=== PATIENT | female | born 1950 | race Hispanic/Latino ===

== ENCOUNTER 2019-12-28 05:23 | Observation (INO) | payer MEDICARE, OTHER ==
[2019-12-23 10:24] LABS: BASOPHILS # (AUTO) 0.1 (0.0-0.1); EOSINOPHILS # (AUTO) 0.4 (0.0-0.4); EOSINOPHILS % 4.7 % (0.0-6.0); HEMATOCRIT 34.1 % (34.2-44.1); HEMOGLOBIN 10.9 g/dL (12.0-16.0); LYMPHOCYTES # (AUTO) 2.5 (1.0-3.2); LYMPHOCYTES % 29.2 % (18.0-39.1); MEAN CORPUSCULAR HEMOGLOBIN 28.3 pg (28-32); MEAN CORPUSCULAR VOLUME 88.6 fL (81-99); MONOCYTES # (AUTO) 0.7 (0.2-0.8); MONOCYTES % 7.6 % (4.4-11.3); NEUTROPHILS # (AUTO) 4.9 (2.1-6.9); NEUTROPHILS % 57.2 % (38.7-80.0); PLATELET COUNT 332 x10e3/uL (140-360); RED BLOOD COUNT 3.85 x10e6/uL (3.6-5.1); RED CELL DISTRIBUTION WIDTH 15.2 % (11.7-14.4)
[2019-12-23 11:14] LABS: ANION GAP 16.7 mmol/L (8-16); BLOOD UREA NITROGEN 16 mg/dL (7-26); BUN/CREATININE RATIO 24 (6-25); CARBON DIOXIDE 22 mmol/L (22-29); CHLORIDE 100 mmol/L (98-107); CREATININE, SERUM 0.68 mg/dL (0.57-1.11); EST GLOMERULAR FILTRATION RATE > 60 ML/MIN (60-); GLUCOSE 121 mg/dL (74-118); POTASSIUM 3.7 mmol/L (3.5-5.1); SODIUM 135 mmol/L (136-145)
[~2019-12-28] VITALS: Ht 157.5 cm; Wt 67.6 kg
[~2019-12-28 05:23] MED LIST: ASPIRIN81 MG PO; GLIPIZIDE ER5 MG PO; HYDROCHLOROTHIA25 MG PO; LEVOTHYROXINE75 MCG PO; LOSARTAN POTAS100 MG PO; LOVASTATIN40 MG PO; MECLIZINE HCL12.5 MG PO; METFORMIN HCL500 MG PO; VIT D3 PO
[2019-12-28] MEDS ORDERED: PIPER-TAZ 3.375 GM 50 ML ONE (06:14)
[2019-12-28] MEDS ORDERED: CLINDAMYCIN 300MG 50 ML IV ONE (06:14)
[2019-12-28] MEDS ORDERED: IOPAMIDOL 300MG/ML 50ML INFUS..BTL IV ONE ×2 (07:06→08:55)
[2019-12-28] MEDS ORDERED: INDIGOTINDISULFONATE SODIUM 8 MG/ML AMP IJ ONE ×2 (07:07→08:55)
[2019-12-28] MEDS ORDERED: BUPIVACAINE 0.25%/EPI 30ML SDV INJ ONE (07:07)
[2019-12-28] MEDS ORDERED: SILVER SULFADIAZINE 50GM CREAM ONE (07:28)
[2019-12-28] MEDS ORDERED: VANCOMYCIN HCL 500 MG ONE (07:45)
[2019-12-28] MEDS ORDERED: GENTAMICIN SULFATE 40 MG/ML 2 ML VIAL ONE (08:24)
[2019-12-28] MEDS ORDERED: B&O 60MG R/S 60 MG SUPP PR ONE (08:55)
[2019-12-28] MEDS ORDERED: DIPHENHYDRAMINE HCL 25 MG CAP PO PRN (10:45)
[2019-12-28] MEDS ORDERED: MORPHINE SULFATE 2 MG/ML SYR 1ML IV PRN (10:45)
[2019-12-28] MEDS: D5.45%NS/KCL 20MEQ 1,000 ML IV SCH ×3 (10:45→12:50)
[2019-12-28] MEDS ORDERED: ONDANSETRON HCL INJ 2MG/ML 2ML 2 MG/ML VIAL IV PRN (10:45)
[2019-12-28 11:30] VITALS: BP 113/60
[2019-12-28 12:14] LABS: BASOPHILS # (AUTO) 0.1 (0.0-0.1); BASOPHILS % 0.5 % (0.0-1.0); EOSINOPHILS # (AUTO) 0.1 (0.0-0.4); EOSINOPHILS % 0.5 % (0.0-6.0); HEMATOCRIT 36.3 % (34.2-44.1); HEMOGLOBIN 11.5 g/dL (12.0-16.0); LYMPHOCYTES # (AUTO) 0.9 (1.0-3.2); LYMPHOCYTES % 9.5 % (18.0-39.1); MEAN CORPUSCULAR HEMOGLOBIN 28.3 pg (28-32); MEAN CORPUSCULAR HGB CONC 31.7 g/dL (31-35); MEAN CORPUSCULAR VOLUME 89.4 fL (81-99); MONOCYTES # (AUTO) 0.1 (0.2-0.8); MONOCYTES % 1.5 % (4.4-11.3); NEUTROPHILS # (AUTO) 8.1 (2.1-6.9); NEUTROPHILS % 87.6 % (38.7-80.0); PLATELET COUNT 340 x10e3/uL (140-360); RED BLOOD COUNT 4.06 x10e6/uL (3.6-5.1); RED CELL DISTRIBUTION WIDTH 15.3 % (11.7-14.4)
[2019-12-28 12:30] LABS: ANION GAP 17.8 mmol/L (8-16); BLOOD UREA NITROGEN 12 mg/dL (7-26); BUN/CREATININE RATIO 17 (6-25); CALCIUM 9.3 mg/dL (8.4-10.2); CARBON DIOXIDE 24 mmol/L (22-29); CHLORIDE 104 mmol/L (98-107); EST GLOMERULAR FILTRATION RATE > 60 ML/MIN (60-); GLUCOSE 178 mg/dL (74-118); POTASSIUM 3.8 mmol/L (3.5-5.1); SODIUM 142 mmol/L (136-145)
[2019-12-28] MEDS: CLINDAMYCIN 300MG 50 ML IV SCH ×2 (15:59→21:09)
[2019-12-28] MEDS: DOCUSATE SODIUM 100 MG CAP PO SCH (16:00)
[2019-12-28 16:02] VITALS: BP 119/64
[2019-12-28] MEDS: PIPER-TAZ 3.375 GM 50 ML IV SCH (17:42)
[2019-12-28 19:20] LABS: CHOL/HDL RATIO 2.6 (3.0-3.6)
[2019-12-28 20:00] VITALS: BP 114/63
[2019-12-28] MEDS: SIMVASTATIN 40 MG TAB PO SCH (20:03)
[2019-12-28] MEDS ORDERED: KETOROLAC TROMETHAMINE 30 MG/ML VIAL ONE (21:27)
[2019-12-28] MEDS ORDERED: ONDANSETRON HCL INJ 2MG/ML 2ML 2 MG/ML VIAL ONE (21:27)
[2019-12-28] MEDS ORDERED: DEXAMETHASONE SOD PHOS INJ 4 MG/ML VIAL ONE (21:27)
[2019-12-28] MEDS ORDERED: LIDOCAINE HCL 2% LOCAL INJ 5 ML SDV VIAL INJ ONE (21:27)
[2019-12-28] MEDS ORDERED: PROPOFOL IV EMULSION 10 MG/ML 20 ML VIAL ONE (21:27)
[2019-12-28] MEDS ORDERED: SEVOFLURANE INHAL SOLN 250 ML PEN BTL ONE (21:27)
[2019-12-28] MEDS ORDERED: MIDAZOLAM HCL 2 MG/2 ML VIAL ONE (21:44)
[2019-12-28] MEDS ORDERED: FENTANYL CITRATE/PF 100MCG/2 ML INJ ONE (21:44)
[2019-12-29] VITALS (7 sets, daily range): BP systolic 101–124; BP diastolic 61–74
[2019-12-29] MEDS: D5.45%NS/KCL 20MEQ 1,000 ML IV SCH ×2 (01:19→18:33)
[2019-12-29] MEDS: CLINDAMYCIN 300MG 50 ML IV SCH ×3 (05:04→21:21)
[2019-12-29] MEDS: LEVOTHYROXINE SODIUM 75 MCG TAB PO SCH (05:04)
[2019-12-29] MEDS: ACETAMINOPHEN 325 MG TAB PO PRN (05:07)
[2019-12-29 05:20] LABS: BASOPHILS % 0.3 % (0.0-1.0); EOSINOPHILS % 0.4 % (0.0-6.0); HEMATOCRIT 28.7 % (34.2-44.1); HEMOGLOBIN 9.3 g/dL (12.0-16.0); LYMPHOCYTES # (AUTO) 2.1 (1.0-3.2); LYMPHOCYTES % 20.2 % (18.0-39.1); MEAN CORPUSCULAR HEMOGLOBIN 28.4 pg (28-32); MEAN CORPUSCULAR HGB CONC 32.4 g/dL (31-35); MEAN CORPUSCULAR VOLUME 87.8 fL (81-99); MONOCYTES # (AUTO) 1.1 (0.2-0.8); MONOCYTES % 10.4 % (4.4-11.3); NEUTROPHILS # (AUTO) 7.2 (2.1-6.9); NEUTROPHILS % 68.4 % (38.7-80.0); PLATELET COUNT 301 x10e3/uL (140-360); RED BLOOD COUNT 3.27 x10e6/uL (3.6-5.1); RED CELL DISTRIBUTION WIDTH 15.1 % (11.7-14.4)
[2019-12-29 05:57] LABS: ANION GAP 16.2 mmol/L (8-16); BLOOD UREA NITROGEN 11 mg/dL (7-26); BUN/CREATININE RATIO 16 (6-25); CALCIUM 8.3 mg/dL (8.4-10.2); CARBON DIOXIDE 22 mmol/L (22-29); CHLORIDE 102 mmol/L (98-107); EST GLOMERULAR FILTRATION RATE > 60 ML/MIN (60-); GLUCOSE 109 mg/dL (74-118); POTASSIUM 4.2 mmol/L (3.5-5.1); SODIUM 136 mmol/L (136-145)
[2019-12-29] MEDS: DOCUSATE SODIUM 100 MG CAP PO SCH ×2 (08:48→16:44)
[2019-12-29] MEDS: PIPER-TAZ 3.375 GM 50 ML IV SCH ×4 (08:48→23:34)
[2019-12-29] MEDS: LOSARTAN POTASSIUM 100 MG TAB PO SCH (08:48)
[2019-12-29] MEDS: SENNOSIDES 8.6 MG TAB PO SCH (08:56)
[2019-12-29] MEDS: ACETAMINOPHEN/CODEINE 300MG - 30MG TAB PO PRN ×3 (11:18→20:12)
[2019-12-29] MEDS: SIMVASTATIN 40 MG TAB PO SCH (20:12)
[2019-12-30] VITALS (8 sets, daily range): BP systolic 107–123; BP diastolic 62–80
[2019-12-30] MEDS: ACETAMINOPHEN/CODEINE 300MG - 30MG TAB PO PRN ×2 (04:33→16:05)
[2019-12-30] MEDS: CLINDAMYCIN 300MG 50 ML IV SCH ×3 (05:17→22:38)
[2019-12-30] MEDS: LEVOTHYROXINE SODIUM 75 MCG TAB PO SCH (05:18)
[2019-12-30 06:12] LABS: BASOPHILS # (AUTO) 0.1 (0.0-0.1); BASOPHILS % 0.6 % (0.0-1.0); EOSINOPHILS # (AUTO) 0.2 (0.0-0.4); EOSINOPHILS % 2.6 % (0.0-6.0); HEMATOCRIT 31.3 % (34.2-44.1); HEMOGLOBIN 10.3 g/dL (12.0-16.0); LYMPHOCYTES # (AUTO) 2.4 (1.0-3.2); LYMPHOCYTES % 30.2 % (18.0-39.1); MEAN CORPUSCULAR HEMOGLOBIN 29.9 pg (28-32); MEAN CORPUSCULAR HGB CONC 32.9 g/dL (31-35); MONOCYTES # (AUTO) 0.7 (0.2-0.8); MONOCYTES % 8.7 % (4.4-11.3); NEUTROPHILS # (AUTO) 4.7 (2.1-6.9); NEUTROPHILS % 57.7 % (38.7-80.0); PLATELET COUNT 319 x10e3/uL (140-360); RED BLOOD COUNT 3.44 x10e6/uL (3.6-5.1); RED CELL DISTRIBUTION WIDTH 15.6 % (11.7-14.4)
[2019-12-30 06:32] LABS: ANION GAP 16.2 mmol/L (8-16); BLOOD UREA NITROGEN 7 mg/dL (7-26); BUN/CREATININE RATIO 10 (6-25); CALCIUM 8.6 mg/dL (8.4-10.2); CARBON DIOXIDE 24 mmol/L (22-29); CHLORIDE 104 mmol/L (98-107); CREATININE, SERUM 0.69 mg/dL (0.57-1.11); EST GLOMERULAR FILTRATION RATE > 60 ML/MIN (60-); GLUCOSE 109 mg/dL (74-118); POTASSIUM 4.2 mmol/L (3.5-5.1); SODIUM 140 mmol/L (136-145)
[2019-12-30] MEDS: PIPER-TAZ 3.375 GM 50 ML IV SCH ×2 (09:00→15:58)
[2019-12-30] MEDS: SENNOSIDES 8.6 MG TAB PO SCH ×2 (09:23→20:35)
[2019-12-30] MEDS: DOCUSATE SODIUM 100 MG CAP PO SCH ×2 (09:23→16:04)
[2019-12-30] MEDS: LOSARTAN POTASSIUM 100 MG TAB PO SCH (09:23)
[2019-12-30] MEDS: D5.45%NS/KCL 20MEQ 1,000 ML IV SCH (12:04)
[2019-12-30] MEDS: SIMVASTATIN 40 MG TAB PO SCH (20:35)
[2019-12-31] VITALS: BP 113/69
[2019-12-31 04:00] VITALS: BP 123/86
[2019-12-31] MEDS: D5.45%NS/KCL 20MEQ 1,000 ML IV SCH (04:55)
[2019-12-31] MEDS: LEVOTHYROXINE SODIUM 75 MCG TAB PO SCH (05:47)
[2019-12-31 06:05] LABS: BASOPHILS # (AUTO) 0.1 (0.0-0.1); BASOPHILS % 0.8 % (0.0-1.0); EOSINOPHILS # (AUTO) 0.4 (0.0-0.4); EOSINOPHILS % 5.3 % (0.0-6.0); HEMOGLOBIN 10.5 g/dL (12.0-16.0); LYMPHOCYTES % 25.6 % (18.0-39.1); MEAN CORPUSCULAR HGB CONC 32.8 g/dL (31-35); MEAN CORPUSCULAR VOLUME 91.4 fL (81-99); MONOCYTES # (AUTO) 0.7 (0.2-0.8); MONOCYTES % 9.6 % (4.4-11.3); NEUTROPHILS # (AUTO) 4.5 (2.1-6.9); NEUTROPHILS % 58.3 % (38.7-80.0); PLATELET COUNT 295 x10e3/uL (140-360); RED CELL DISTRIBUTION WIDTH 15.4 % (11.7-14.4)
[2019-12-31] MEDS ORDERED: SENOKOT8.6 MG PO (06:07)
[2019-12-31] MEDS ORDERED: ZOFRAN4 MG PO (06:07)
[2019-12-31] MEDS ORDERED: COLACE100 MG PO (06:07)
[2019-12-31] MEDS ORDERED: TYLENOL325 M2 PO (06:07)
[2019-12-31] MEDS: CLINDAMYCIN 300MG 50 ML IV SCH ×2 (06:07→15:10)
[2019-12-31 06:27] LABS: BLOOD UREA NITROGEN 7 mg/dL (7-26); BUN/CREATININE RATIO 10 (6-25); CALCIUM 8.5 mg/dL (8.4-10.2); CARBON DIOXIDE 21 mmol/L (22-29); CHLORIDE 102 mmol/L (98-107); CREATININE, SERUM 0.67 mg/dL (0.57-1.11); EST GLOMERULAR FILTRATION RATE > 60 ML/MIN (60-); GLUCOSE 130 mg/dL (74-118); SODIUM 136 mmol/L (136-145)
[2019-12-31 08:00] VITALS: BP 139/73
[2019-12-31] MEDS: SENNOSIDES 8.6 MG TAB PO SCH (08:45)
[2019-12-31] MEDS: LOSARTAN POTASSIUM 100 MG TAB PO SCH (08:45)
[2019-12-31] MEDS: PIPER-TAZ 3.375 GM 50 ML IV SCH ×3 (08:45→15:51)
[2019-12-31] MEDS: DOCUSATE SODIUM 100 MG CAP PO SCH ×2 (08:45→15:56)
[2019-12-31 08:51] VITALS: BP 139/73
[2019-12-31] MEDS: ACETAMINOPHEN/CODEINE 300MG - 30MG TAB PO PRN (09:53)
[2019-12-31 12:00] VITALS: BP 127/76
[2019-12-31 16:00] VITALS: BP 125/65
[2019-12-31] MEDS ORDERED: LEVOFLOXACIN250 MG PO (16:02)
[2019-12-31] MEDS: ACETAMINOPHEN 325 MG TAB PO PRN (17:39)
== END 2019-12-31 17:40 | disposition home or self-care (01) ==
LOC: OR 05:23 → INTOOBSV 10:46 → PACU V 10:46 → MED/SURG 11:32
PROVIDERS: ADMIT Internal Medicine; ATTEND Internal Medicine
DX: N81.10 Cystocele, unspecified (principal); E78.5 Hyperlipidemia, unspecified; E03.9 Hypothyroidism, unspecified; E66.3 Overweight; Z68.27 Body mass index [BMI] 27.0-27.9, adult; Z11.59 Encounter for screening for other viral diseases; N39.3 Stress incontinence (female) (male); R31.29 Other microscopic hematuria; N39.0 Urinary tract infection, site not specified
CPT/HCPCS: 36415 ×5; 51992; 52005; 57240; 57267; 71046; 74420; 80048 ×5; 80061; 82948 ×3; 83036; 85025 ×5; 93005; 97139 ×2; 97161; C1752; C1758; G0378 ×4; J1100; J1580; J1885; J2001; J2250; J2405 ×2; J2543 ×4; J2704; J3010; J3370; Q9967; U0002; J2270

== ENCOUNTER → 2024-04-15 | Outpatient (REF) | payer MEDICARE ==
[~2024-04-15] MED LIST changes: +COLACE100 MG PO; +LEVOFLOXACIN250 MG PO; +SENOKOT8.6 MG PO; +TYLENOL325 M2 PO; +ZOFRAN4 MG PO
== END ==
LOC: US 13:08
PROVIDERS: ATTEND Urology
DX: R31.21 Asymptomatic microscopic hematuria (principal); N39.0 Urinary tract infection, site not specified; N28.1 Cyst of kidney, acquired
CPT/HCPCS: 76770; 76857

== ENCOUNTER 2024-05-12 23:10 | Emergency (ER) | payer MEDICARE ==
[~2024-05-12] VITALS: Ht 154.9 cm; Wt 65.8 kg
[2024-05-12 23:16] VITALS: PULSE 68; RESP 17; TEMP 98.6
[2024-05-12 23:42] LABS: BASOPHILS % 0.6 % (0.0-1.0); EOSINOPHILS # (AUTO) 0.3 (0.0-0.4); EOSINOPHILS % 4.1 % (0.0-6.0); HEMOGLOBIN 11.2 g/dL (12.0-16.0); LYMPHOCYTES # (AUTO) 2.8 (1.0-3.2); LYMPHOCYTES % 42.7 % (18.0-39.1); MEAN CORPUSCULAR HEMOGLOBIN 30.3 pg (28-32); MEAN CORPUSCULAR HGB CONC 31.1 g/dL (31-35); MEAN CORPUSCULAR VOLUME 97.3 fL (81-99); MONOCYTES # (AUTO) 0.8 (0.2-0.8); MONOCYTES % 12.4 % (4.4-11.3); NEUTROPHILS # (AUTO) 2.7 (2.1-6.9); NEUTROPHILS % 39.9 % (38.7-80.0); PLATELET COUNT 295 x10e3/uL (140-360); RED CELL DISTRIBUTION WIDTH 13.2 % (11.7-14.4); WHITE BLOOD COUNT 6.63 x10e3/uL (4.8-10.8)
[2024-05-13 00:02] LABS: ALBUMIN 3.8 g/dL (3.5-5.0); ALBUMIN/GLOBULIN RATIO 1.2 (0.8-2.0); ANION GAP 16.7 mmol/L (8-16); BILIRUBIN,TOTAL 0.2 mg/dL (0.2-1.2); CALCIUM 9.6 mg/dL (8.4-10.2); CREATININE, SERUM 0.68 mg/dL (0.57-1.11); POTASSIUM 3.7 mmol/L (3.5-5.1); TOTAL PROTEIN 6.9 g/dL (6.5-8.1)
[2024-05-13 00:54] VITALS: BP 153/101; PULSE 66; RESP 18; TEMP 98.2; O2SAT 98
== END 2024-05-13 00:45 | disposition home or self-care (01) ==
LOC: ER 23:15
DX: G62.9 Polyneuropathy, unspecified (principal); I10 Essential (primary) hypertension; E11.65 Type 2 diabetes mellitus with hyperglycemia; E78.5 Hyperlipidemia, unspecified; E03.9 Hypothyroidism, unspecified
CPT/HCPCS: 36415; 80053; 85025; 99283